=== PATIENT | male | born 1970 | race Caucasian/White ===

== ENCOUNTER 2021-10-23 21:07 | Emergency (ER) | payer OTHER, SELFPAY ==
[2021-10-23 21:28] VITALS: BP 142/89; PULSE 85; RESP 16; TEMP 36.4; O2SAT 99; BMI 30.8
--- NOTE | 2021-10-23 21:39 | ED.NURSE ---
poison controlled called for overdose. pt. took about 45 tabs of 25mg vistaril around 1900. recomendations: ekg, labs, monitor 4 hours. supported cares.
--- NOTE | 2021-10-23 21:54 | ED.OVERDOSE ---
HPI - Overdose General Time Seen by Provider: 21:35 Date Seen: 10/23/21 Chief Complaint: Overdose Stated Complaint: Overdose, Mental Health Time Seen by Provider: 10/23/21 21:47 Source: patient, RN notes reviewed and old records reviewed Mode of arrival: ambulatory Limitations: no limitations History of Present Illness HPI Narrative: Elmo is a very pleasant 51-year-old male who states that he has had lifelong thoughts of suicide acting on those thoughts today with an overdose of Vistaril. He took a large amount of visceral with the intention of killing himself. He states that he currently deals with childhood trauma and has been seeing a a therapist. He is planning on switching therapists and doing some work on his childhood trauma. He states however the with the way the world is and recent break-up with his partner he was feeling depressed. Patient has otherwise been healthy. He denies a history of addictions, alcohol use tonight or taking any other medications. He denies chest pain, shortness of breath, or fever or chills. He notes he has slightly nauseated but he has not had any vomiting. He took the medications at approximately 1900 hours. Our staff contacted poison Control who notes that this will give him mostly an anticholinergic effect. They suggest 4 hours of monitoring. He is requesting no visitors. complaint: intentional overdose Onset (ago): hour(s) Time: 19:00 Intent: suicide attempt and wanted to go to sleep Related Data Home Medications Medication Instructions Recorded Confirmed efavirenz 600 mg-emtricitabine 200 1 tab PO DAILY 10/23/21 10/23/21 mg-tenofovir disoprox 300 mg tablet (Atripla) fluoxetine 20 mg capsule (Prozac) 20 mg PO DAILY 10/23/21 10/23/21 Allergies Allergy/AdvReac Type Severity Reaction Status Date / Time No Known Drug Allergies Allergy Verified 10/23/21 21:35 Review of Systems Status of ROS: Reports: 10 or more systems reviewed and unremarkable except as noted in History and below Const: Denies: fever Eyes: Denies: change in vision ENMT: Denies: throat pain or neck pain Cardio: Denies: chest pain or shortness of breath with exertion Resp: Denies: shortness of breath or cough GI: Reports: nausea; Denies: abdominal pain, vomiting or diarrhea : Denies: painful urination Musculo: Denies: back pain or neck pain Integ/Breast: Denies: rash Neuro: Denies: headache Psych: Reports: hopelessness Endo: Denies: excessive urination [facility] Medical History (Updated 10/24/21 @ 00:44 by Pearl Dhillon MD) HIV (human immunodeficiency virus infection) Surgical History (Updated 10/24/21 @ 00:20 by Montana Corado RN) No significant past surgical history Social History Smoking Status: Never smoker Do you use any of these nicotine containing products: None How often do you have a drink containing alcohol: never How often do you have six or more drinks on one occasion: Never AUDIT-C Alcohol total score: 0 Non-prescribed substance use: denies use Exam Narrative: Exam Narrative: Past medical history: Depression suicidal ideation describes childhood trauma. Social history: No tobacco use, no alcohol use, no drug use, significant other-they are splitting up Const: Vital Signs, click to edit/add: Vital Signs - 24 hr 10/23/21 21:28 10/23/21 23:00 10/23/21 23:20 Temperature 97.6 F Pulse Rate [Right Pulse Oximeter] 85 77 71 Respiratory Rate 16 16 16 Blood Pressure [Ri ght Upper Arm] 142/89 H 127/80 114/79 Pulse Oximetry 99 95 96 10/23/21 23:40 10/24/21 00:20 Temperature Pulse Rate [Right Pulse Oximeter] 72 68 Respiratory Rate 16 18 Blood Pressure [Ri ght Upper Arm] 120/83 126/82 Pulse Oximetry 95 97 Documenting provider has reviewed patient's vital signs: yes Common normals: no apparent distress and oriented x3 General appearance: cooperative, comfortable and well kempt Other: Patient is lying comfortably on the gurney in exam to. He is fatigued and closing his eyes when I walk in but will open his eyes follow commands has good thought content and is cooperative. HENMT: Common normals: normocephalic and external ears normal Head and scalp: normocephalic Face and sinus: normal facial exam External ear: external ears normal Mouth: oral and palatal mucosa normal, lip normal and tongue normal Eye: Common normals: PERRL General eye: normal appearance of both eyes Pupil: PERRL Neck & C-Spine: Common normals: full ROM and supple Chest: Common normals: inspection of chest normal Resp: Common normals: normal respiratory effort, no use of accessory muscles and clear to auscultation bilaterally Auscultation: clear to auscultation bilaterally Cardio: Common normals: regular rate and regular rhythm Rate: regular rate Rhythm: regular rhythm GI: Common normals: soft to palpation and non-tender Palpation: soft : Common normals: no CVA tenderness Bladder/kidney exam: no CVA tenderness Back & Pelvis: Common normals: no CVA tenderness Extremity: Common normals: normal to inspection Neuro: Common normals: oriented x3 Pupil exam: Normal pupillary reactivity/response: bilateral Psych: Common normals: thought process normal Appearance: well kempt Mood and affect: depressed mood Thought process: normal thought process Thought content: normal thought content Attention/concentration: attention grossly intact Memory/cognition: memory grossly intact Skin: Common normals: no rashes or lesions noted General skin exam: no rashes or lesions noted Course Course Hospital Course: At this time patient has taken overdose of Vistaril. We have contacted poison Control. We will be monitoring patient with cardiac monitoring. Will also place an IV and give 1 L of normal saline. Laboratory values include a CBC, comprehensive panel, urinary toxicology, urinalysis, EtOH, salicylates, acetaminophen. Patient will be here in the emergency room. Plan on telehealth psychiatric evaluation at the end of monitoring. When we can medically clear him. Reevaluation(s) Reevaluation #1: Patient's significant other has arrived. Patient does allow visitor. Laboratory values include normal white count and CBC. INR is within normal limits. Electrolyte panel within normal limits creatinine of 0.9. Glucose slightly elevated at 123. Magnesium normal at 2.1 LFTs within normal limits. Urinalysis shows trace ketones. Salicylates acetaminophen and alcohol are negative. Will order tele health evaluation. Vital Signs Vital signs: Initial Vital Signs Respiratory Effort Spontaneous 10/23/21 21:10 Respiratory Pattern 10/23/21 21:10 Vital Signs Temperature 97.6 F 10/23/21 21:28 Pulse Rate 85 10/23/21 21:28 Respiratory Rate 16 10/23/21 21:28 Blood Pressure 142/89 H 10/23/21 21:28 Pulse Oximetry 99 10/23/21 21:28 Temperature 97.6 F 10/23/21 21:28 Pulse Rate 68 10/24/21 00:20 Respiratory Rate 18 10/24/21 00:20 Blood Pressure 126/82 10/24/21 00:20 Pulse Oximetry 97 10/24/21 00:20 MDM - Overdose MDM Narrative Medical decision making narrative: 1. Suicidal gesture-upon presentation patient had taken 45 Vistaril tablets. We were able to have patient speak with our tele health specialist. Andi spent an hour with patient. They note that patient does have a therapist that they were seen twice a week. That he has been working on decreasing toxicity in his life and that as soon his he realized what he did he drove himself to the hospital. He is working through some childhood trauma. 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 They do not suggest hospitalization as he does have appropriate follow-up tomorrow morning at 1030 with a therapist, has an alternative living situation and feels that he can contract for safety. I also speak with Elmo and he is denying desire to . He has safe friend to go home with and a follow-up plan. 2. Vistaril overdose-patient has been sleepy but has been vitally stable. Laboratory values reassuring. He will be sleepy tonight but he has been maintaining his airway and able to interact appropriately in the ED. 3. Prolonged QT-patient has reassuring magnesium at 2.1 which can exert a protective affect. Patient has taken Vistaril but also is on Prozac and Atripla. Combination can lead to prolonged QT. currently speaking with poison Control once again in regards to need for observation. QT corrected has gone from 489 to 459 milliseconds. 3. Disposition-patient is discharged home. Recommend return to the emergency room for increasing suicidal ideation, intent or plan. Poison Control feels that Elmo is out of the window for any further danger. I did speak with Elmo about EKG, prolonged QT, safety plan. He does contract verbally with me for safety but will also have a written plan. He does agree to return for worsening symptoms and as needed. Lab Data Attestation: I reviewed the patient's lab results. Labs: Lab Results 0710/23/21 10/23/21 Range/Units 22:04 22:14 22:14 WBC 6.83 (4.50-11.00) K/uL RBC 4.94 (4.30-5.90) m/uL Hgb 15.6 (13.5-17.5) gm/dL Hct 45.9 (37.0-53.0) % MCV 93 (80-100) fL MCH 32 (26-34) pg MCHC 34 (32-36) gm/dL RDW Coeff of [place] 13.1 (11.5-15.5) % Plt Count 300 (140-440) K/uL Neut % (Auto) 61.2 (42.0-72.0) % Lymph % (Auto) 25.5 (20-44) % [place] % (Auto) 8.6 (0.0-11.0) % Eos % (Auto) 4.2 (0.0-7.0) % Baso % (Auto) 0.4 (0.0-3.0) % Neut # (Auto) 4.17 (1.7-7.0) K/uL Lymph # (Auto) 1.74 (0.90-2.90) K/uL [place] # (Auto) 0.60 (0.00-0.90) K/UL Eos # (Auto) 0.29 (0.00-0.50) K/uL Baso # (Auto) 0.03 (0.00-0.30) K/uL Abs Immat Gran (auto) 0.01 (0.00-0.30) K/uL INR 1.03 (0.91-1.10) Sodium (135-149) mmol/L Potassium (3.6-5.1) mmol/L Chloride (96-114) mmol/L Carbon Dioxide (20-32) mmol/L BUN (5-24) mg/dL Creatinine (0.5-1.5) mg/dL Estimated Creat Clear Estimated GFR ml/min Glucose (60-115) mg/dL Calcium (8.4-10.6) mg/dL Magnesium (1.5-2.6) mg/dL Total Bilirubin (0.1-1.5) mg/dL AST (12-35) U/L ALT (4-50) U/L Alkaline Phosphatase (40-150) U/L Total Protein (6.0-8.3) g/dL Albumin (3.3-5.0) g/dL Urine Color Yellow (Yellow) Urine Appearance Clear (Clear) Urine pH 6.0 (5.0-8.5) Ur Specific [place] 1.010 (1.000-1.030) Urine Protein Negative (Negative) Urine Glucose (UA) Negative (Negative) Urine Ketones Trace A (Negative) Urine Blood Negative (Negative) Urine Nitrite Negative (Negative) Urine Bilirubin Negative (Negative) Urine Urobilinogen 0.2 (0.2-1.0) Ur Leukocyte Esterase Negative (Negative) Salicylates (1.0-10) mg/dL Urine Opiates Screen (Negative) Ur Oxycodone Screen (Negative) Urine Methadone Screen (Negative) Ur Propoxyphene Screen (Negative) Acetaminophen (10.0-30.0) ug/mL Ur Barbiturates Screen (Negative) Ur Phencyclidine Scrn (Negative) Ur Amphetamines Screen (Negative) U Methamphetamines Scrn (Negative) U Benzodiazepines Scrn (Negative) Urine Cocaine Screen (Negative) U Marijuana (THC) Screen (Negative) Ur Drug Screen Comment Ethyl Alcohol (0.01-0.03) % 10/23/21 10/23/21 10/23/21 Range/Units 22:14 22:14 23:52 WBC (4.50-11.00) K/uL RBC (4.30-5.90) m/uL Hgb (13.5-17.5) gm/dL Hct (37.0-53.0) % MCV (80-100) fL MCH (26-34) pg MCHC (32-36) gm/dL RDW Coeff of [place] (11.5-15.5) % Plt Count (140-440) K/uL Neut % (Auto) (42.0-72.0) % Lymph % (Auto) (20-44) % [place] % (Auto) (0.0-11.0) % Eos % (Auto) (0.0-7.0) % Baso % (Auto) (0.0-3.0) % Neut # (Auto) (1.7-7.0) K/uL Lymph # (Auto) (0.90-2.90) K/uL [place] # (Auto) (0.00-0.90) K/UL Eos # (Auto) (0.00-0.50) K/uL Baso # (Auto) (0.00-0.30) K/uL Abs Immat Gran (auto) (0.00-0.30) K/uL INR (0.91-1.10) Sodium 140 (135-149) mmol/L Potassium 3.8 (3.6-5.1) mmol/L Chloride 108 (96-114) mmol/L Carbon Dioxide 22 (20-32) mmol/L BUN 14 (5-24) mg/dL Creatinine 0.9 (0.5-1.5) mg/dL Estimated Creat Clear 115.44 Estimated GFR 105 ml/min Glucose 123 H (60-115) mg/dL Calcium 9.1 (8.4-10.6) mg/dL Magnesium 2.1 (1.5-2.6) mg/dL Total Bilirubin 0.5 (0.1-1.5) mg/dL AST 25 (12-35) U/L ALT 24 (4-50) U/L Alkaline Phosphatase 86 (40-150) U/L Total Protein 7.8 (6.0-8.3) g/dL Albumin 4.4 (3.3-5.0) g/dL Urine Color (Yellow) Urine Appearance (Clear) Urine pH (5.0-8.5) Ur Specific [place] (1.000-1.030) Urine Protein (Negative) Urine Glucose (UA) (Negative) Urine Ketones (Negative) Urine Blood (Negative) Urine Nitrite (Negative) Urine Bilirubin (Negative) Urine Urobilinogen (0.2-1.0) Ur Leukocyte Esterase (Negative) Salicylates < 1.0 L (1.0-10) mg/dL Urine Opiates Screen Negative (Negative) Ur Oxycodone Screen Negative (Negative) Urine Methadone Screen Negative (Negative) Ur Propoxyphene Screen Negative (Negative) Acetaminophen < 10.0 L (10.0-30.0) ug/mL Ur Barbiturates Screen Negative (Negative) Ur Phencyclidine Scrn Negative (Negative) Ur Amphetamines Screen Negative (Negative) U Methamphetamines Scrn Negative (Negative) U Benzodiazepines Scrn Negative (Negative) Urine Cocaine Screen Negative (Negative) U Marijuana (THC) Screen POSITIVE A* (Negative) Ur Drug Screen Comment See Note See Note Ethyl Alcohol < 0.01 L (0.01-0.03) % ECG Data Attestation: I personally reviewed and interpreted this ECG as follows: ECG interpretation date: 10/24/21 Interpretation: EKG by my read shows normal sinus rhythm at a rate of 89. Patient does have a prolonged QT with corrected interval of 481 milliseconds. Isolated Q-wave in lead 3. Good R-wave progression noted. 2. EKG 2. By my read shows sinus rhythm at a rate of 66. Corrected QT interval is 459 milliseconds. Unchanged from previous. No acute ST or T-wave changes. Discharge Plan Discharge Clinical Impression: Suicide gesture, Drug overdose Patient Disposition: Home w/ Parent or Adult Condition: Improved Additional Instructions: Return to the emergency room for suicidal intent or plan. Please follow-up with your therapist as scheduled for tomorrow morning at 1030. Push fluids. Prescriptions: No Action fluoxetine [Prozac] 20 mg capsule 20 mg PO DAILY 0RF [id number] [Atripla] 600-200-300 mg tablet 1 tab PO DAILY 0RF Rx Instructions: must be taken on empty stomach Stand Alone Forms: [employer] Info Instructions
[2021-10-23 22:19] LABS: Appearance Urine Clear (Clear); Bilirubin Urine Negative (Negative); Blood Urine Negative (Negative); Color Urine Yellow (Yellow); Glucose Urine Negative (Negative); Ketones Urine Trace (Negative); Leukocyte Esterase Urine Negative (Negative); Nitrite Urine Negative (Negative); Protein Urine Negative (Negative); Urobilinogen Urine 0.2 (0.2-1.0)
[2021-10-23] MEDS: 0.9 % SODIUM CHLORIDE 1000 ml 1,000 ML IV (22:24)
[2021-10-23 22:33] LABS: Albumin* 4.4 g/dL (3.3-5.0)
[2021-10-23 22:34] LABS: Chloride* 108 mmol/L (96-114); Potassium* 3.8 mmol/L (3.6-5.1); Sodium* 140 mmol/L (135-149)
[2021-10-23 22:36] LABS: Alanine Aminotransferase* 24 U/L (4-50); Alkaline Phosphatase* 86 U/L (40-150); Aspartate Amino Transferase* 25 U/L (12-35); Bilirubin Total* 0.5 mg/dL (0.1-1.5); Blood Urea Nitrogen* 14 mg/dL (5-24); Carbon Dioxide* 22 mmol/L (20-32); Creatinine* 0.9 mg/dL (0.5-1.5); Est. Creatinine Clearance* 115.44; Estimated Glomerular Filt Rate 105 ml/min; INR 1.03 (0.91-1.10); Prothrombin Time 13.9 Seconds; Total Protein* 7.8 g/dL (6.0-8.3)
[2021-10-23 22:37] LABS: Calcium* 9.1 mg/dL (8.4-10.6); Glucose* 123 mg/dL (60-115); Magnesium* 2.1 mg/dL (1.5-2.6)
[2021-10-23 22:38] LABS: Acetaminophen* < 10.0 ug/mL (10.0-30.0); Ethanol* < 0.01 % (0.01-0.03); Salicylate* < 1.0 mg/dL (1.0-10)
[2021-10-23 22:58] LABS: Basophils Absolute Auto 0.03 K/uL (0.00-0.30); Basophils Percent Auto 0.4 % (0.0-3.0); Eosinophils Absolute Auto 0.29 K/uL (0.00-0.50); Eosinophils Percent Auto 4.2 % (0.0-7.0); Hematocrit 45.9 % (37.0-53.0); Hemoglobin* 15.6 gm/dL (13.5-17.5); Immature Granulocytes Abs Auto 0.01 K/uL (0.00-0.30); Lymphocytes Absolute Auto 1.74 K/uL (0.90-2.90); Lymphocytes Percent Auto 25.5 % (20-44); Mean Corpuscular HGB Conc 34 gm/dL (32-36); Mean Corpuscular Hemoglobin 32 pg (26-34); Mean Corpuscular Volume 93 fL (80-100); Monocytes Percent Auto 8.6 % (0.0-11.0); Neutrophils Absolute Auto 4.17 K/uL (1.7-7.0); Neutrophils Percent Auto 61.2 % (42.0-72.0); Platelet Count* 300 K/uL (140-440); RDW Coefficient of Variation % 13.1 % (11.5-15.5); Red Blood Count 4.94 m/uL (4.30-5.90); White Blood Count* 6.83 K/uL (4.50-11.00)
[2021-10-23 23:00] VITALS: BP 127/80; PULSE 77; RESP 16; O2SAT 95
[2021-10-23 23:01] LABS: Slide Review Reflex No
[2021-10-23 23:20] VITALS: BP 114/79; PULSE 71; RESP 16; O2SAT 96
[2021-10-23 23:40] VITALS: BP 120/83; PULSE 72; RESP 16; O2SAT 95
[2021-10-24 00:20] VITALS: BP 126/82; PULSE 68; RESP 18; O2SAT 97
[2021-10-24 00:36] LABS: Amphetamine Screen Urine Negative (Negative); Cannabinoid Screen Urine POSITIVE (Negative); Cocaine Screen Urine Negative (Negative); Methamphetamines Screen Urine Negative (Negative); Opiate Screen Urine Negative (Negative); Phencyclidine Screen Urine Negative (Negative)
[2021-10-24 00:37] LABS: Barbiturate Screen Urine Negative (Negative); Benzodiazepines Screen Urine Negative (Negative); Methadone Screen Urine Negative (Negative); Oxycodone Screen Urine Negative (Negative)
--- NOTE | 2021-10-24 01:00 | ED.NURSE ---
safety contract gone over with pt, pt verbally agrees and signed.
== END 2021-10-24 01:24 | disposition home or self-care (01) ==
PROVIDERS: Emergency Provider Family Medicine
DX: T43.592A Poisoning by other antipsychotics and neuroleptics, intentional self-harm, initial encounter (principal); R45.851 Suicidal ideations; I45.81 Long QT syndrome
CPT/HCPCS: 36415; 80053; 80143; 80179; 80306; 81003; 82077; 83735; 85025; 85610; 93005; 96360; 99284; J7030